=== PATIENT | female | born 1975 | race Caucasian/White ===

== ENCOUNTER 2017-11-05 11:36 | Emergency (ER) | payer BC, OTHER ==
[2017-11-05 10:52] LABS: BASO % 0.6 % (0.0-1.0); EOS # 0.2 10^3/uL (0.0-0.50); EOS % 2.2 % (0.0-3.0); HEMATOCRIT 41.8 % (36.0-47.0); HEMOGLOBIN 13.7 g/dl (12.0-15.5); IMMATURE GRANULOCYTE % 0.3 % (0-3.0); LYMPH # 1.3 10^3/uL (1.5-4.5); LYMPH % 17.8 % (24.0-44.0); MEAN CORPUSCULAR HEMOGLOBIN 30.9 pg (27.0-33.0); MEAN CORPUSCULAR HGB CONC 32.8 g/dl (32.0-36.5); MEAN CORPUSCULAR VOLUME 94.1 fl (80.0-96.0); MONO # 0.5 10^3/uL (0.0-0.8); MONO % 6.2 % (0.0-5.0); NEUTROPHILS # 5.3 10^3/uL (1.8-7.7); NEUTROPHILS % 72.9 % (36.0-66.0); PLATELET COUNT, AUTOMATED 194 10^3/uL (150-450); RED BLOOD COUNT 4.44 10^6/uL (4.00-5.40); RED CELL DISTRIBUTION WIDTH 13.2 % (11.5-14.5); WHITE BLOOD COUNT 7.3 10^3/uL (4.0-10.0)
[2017-11-05 11:15] LABS: ANION GAP 6 MEQ/L (8-16); BLOOD UREA NITROGEN 9 MG/DL (7-18); CALCIUM LEVEL 8.3 MG/DL (8.5-10.1); CARBON DIOXIDE LEVEL 27 MEQ/L (21-32); CHLORIDE LEVEL 107 MEQ/L (98-107); CPK CREATINE PHOSPHOKINASE 128 U/L (26-192); CREATININE FOR GFR 0.78 MG/DL (0.55-1.30); GLOMERULAR FILTRATION RATE > 60.0 (>58); GLUCOSE, FASTING 98 MG/DL (70-100); POTASSIUM SERUM 4.1 MEQ/L (3.5-5.1); SODIUM LEVEL 140 MEQ/L (136-145); TROPONIN I < 0.02 NG/ML (< 0.10)
[2017-11-05 11:16] LABS: CK-MB VALUE MASS 2.1 NG/ML (<3.6); MB/CK RELATIVE INDEX 1.64 (< OR =4)
[2017-11-05] MEDS ORDERED: ISOVUE-370 76% 100ML VIAL (Q9967) As Ordered (12:48)
[2017-11-05 14:34] LABS: CK-MB VALUE MASS 1.8 NG/ML (<3.6); CPK CREATINE PHOSPHOKINASE 97 U/L (26-192); MB/CK RELATIVE INDEX 1.85 (< OR =4); TROPONIN I < 0.02 NG/ML (< 0.10)
== END 2017-11-05 14:54 | disposition home or self-care (01) ==
LOC: M ED 11:36
DX: R91.8 Other nonspecific abnormal finding of lung field (principal); I44.7 Left bundle-branch block, unspecified; M25.569 Pain in unspecified knee; Z87.891 Personal history of nicotine dependence; Z80.1 Family history of malignant neoplasm of trachea, bronchus and lung
CPT/HCPCS: Q9967

== ENCOUNTER → 2017-12-05 | Outpatient (CLI) | payer BC | LOC: M PLARAD 09:33 | DX: R93.8 Abnormal findings on diagnostic imaging of other specified body structures (principal) | CPT/HCPCS: 78815 ==

== ENCOUNTER → 2017-12-26 | Outpatient (REF) | payer BC ==
[2017-12-26 13:24] LABS: ERYTHROCYTE SEDIMENTATION RATE 34 mm/hr (0-20)
[2018-01-01 10:09] LABS: ANCA-ATYPICAL <1:20 titer (Neg:<1:20); ANTI DOUBLE STRAND-DNA AB 2 IU/mL (0-9); ANTINUCLEAR ANTIBODIES DIRECT Negative (Negative); ASPERGILLUS FUMIGATUS AB Negative (Negative); AUREOBASIDIUM PULLULANS Negative (Negative); CYTOPLASMIC NEUTROP AB ANCA-C <1:20 titer (Neg:<1:20); MICROPOLYSPORA FAENI AB Negative (Negative); PERINUCLEAR AB ANCA-P <1:20 titer (Neg:<1:20); PIGEON SERUM AB Negative (Negative); RNP ANTIBODIES <0.2 AI (0.0-0.9); SJOGREN'S ANTI SS-A <0.2 AI (0.0-0.9); SJOGREN'S ANTI SS-B <0.2 AI (0.0-0.9); SMITH ANTIBODIES <0.2 AI (0.0-0.9); THERMOACTINOMYCES SACCHARI Negative (Negative); THERMOACTINOMYCES VULGARIS Negative (Negative)
== END ==
LOC: M LAB REF 12:14
DX: R91.8 Other nonspecific abnormal finding of lung field (principal)
CPT/HCPCS: 86255

== ENCOUNTER → 2018-02-06 | Outpatient (CLI) | payer BC ==
[~2018-02-06] MED LIST: METHACHOLINE KIT (J7674) INH
== END ==
LOC: M CARPUL 10:00
DX: R06.02 Shortness of breath (principal)

== ENCOUNTER → 2018-02-22 | Outpatient (CLI) | payer BC | LOC: M CARPUL 08:34 | DX: R91.8 Other nonspecific abnormal finding of lung field (principal) | CPT/HCPCS: J7674 ==

== ENCOUNTER → 2018-03-02 | Outpatient (CLI) | payer BC | LOC: M RAD 09:31 | DX: R91.8 Other nonspecific abnormal finding of lung field (principal) | CPT/HCPCS: 71250 ==

== ENCOUNTER 2021-05-23 12:57 | Emergency (ER) | payer BC ==
[~2021-05-23] VITALS: Ht 167.6 cm; Wt 135.7 kg
[~2021-05-23 12:57] MED LIST changes: +IBUP-1114 PO; -METHACHOLINE KIT (J7674) INH
[2021-05-23] MEDS ORDERED: ACETAMINOPHEN 325 MG TAB PO ONE (15:50)
[2021-05-23 17:08] LABS: HCG, SERUM QUALITATIVE NEGATIVE (NEGATIVE)
--- NOTE | 2021-05-23 18:04 | REP ---
INDICATION: trauma COMPARISON: None. TECHNIQUE: AP, lateral, bilateral oblique, and coned-down views of the lumbar spine. FINDINGS: Alignment and lordosis maintained. Vertebral bodies are intact. No acute fracture/compression injury or subluxation. Disc spaces are relatively normal/age-appropriate. No obvious spondylolysis or spondylolisthesis. IMPRESSION: Normal Lumbosacral Spine series. <Electronically signed by Jacob Morrow > 05/23/21 1800
--- NOTE | 2021-05-23 18:04 | REP ---
INDICATION: trauma COMPARISON: None. TECHNIQUE: AP, lateral, and swimmers views. FINDINGS: Alignment and kyphosis is maintained. Vertebral bodies are grossly intact. No acute fracture / compression injury or subluxation is appreciated. IMPRESSION: No evidence for acute fracture/compression injury or subluxation. <Electronically signed by Jacob Morrow > 05/23/21 1800
--- NOTE | 2021-05-23 18:05 | REP ---
INDICATION: trauma COMPARISON: None. TECHNIQUE: AP and lateral views of the sacrum and coccyx (3 total views) FINDINGS: The osseous structures and joint spaces are intact and normal. There is no evidence for acute fracture or dislocation. Surrounding soft tissues are unremarkable. No subcutaneous emphysema or radiodense foreign body. IMPRESSION: . No acute fracture or dislocation. <Electronically signed by Jacob Morrow > 05/23/21 [id number]
[2021-05-23 18:14] VITALS: BP 189/88
== END 2021-05-23 18:28 | disposition home or self-care (01) ==
LOC: M ED 12:57
DX: S30.0XXA Contusion of lower back and pelvis, initial encounter (principal); W01.0XXA Fall on same level from slipping, tripping and stumbling without subsequent striking against object, initial encounter; Y92.9 Unspecified place or not applicable; Y93.9 Activity, unspecified; Y99.9 Unspecified external cause status

== ENCOUNTER → 2022-02-24 | Outpatient (CLI) | payer BC | LOC: M WUC 15:36 | PROVIDERS: ATTEND Physician Assistant | DX: M25.562 Pain in left knee (principal); M25.762 Osteophyte, left knee; M17.12 Unilateral primary osteoarthritis, left knee ==